=== PATIENT | male | born 1980 | race African-American/Black ===

== ENCOUNTER 2018-12-25 18:38 | Emergency (ER) | payer BC ==
[~2018-12-25] VITALS: Ht 172.7 cm; Wt 92.0 kg
[2018-12-25] MEDS ORDERED: ONDANSETRON HCL 4MG/2ML INJ IV ONE (19:15)
[2018-12-25] MEDS ORDERED: SODIUM CHLORIDE 0.9% 1,000 ML IV ONE (19:15)
[2018-12-26 02:58] VITALS: BP 102/58
== END 2018-12-26 03:07 | disposition home or self-care (01) ==
LOC: ER 18:38
DX: F12.129 Cannabis abuse with intoxication, unspecified (principal); Z98.84 Bariatric surgery status
CPT/HCPCS: 82962; 96361; 96374; 99283; J2405; J7030; Z7610